=== PATIENT | female | born 1960 | race Two or more races ===

== ENCOUNTER 2018-11-05 21:40 | Emergency (ER) | payer SELFPAY ==
[~2018-11-05] VITALS: Ht 162.6 cm; Wt 63.5 kg
[~2018-11-05 21:40] MED LIST: HYDROCODON-ACE1 EA15 ORAL; IBUPROFEN600 MG ORAL; NKM
[2018-11-05] MEDS ORDERED: Naproxen 500mg tab ORAL ONE (22:00)
[2018-11-05] MEDS ORDERED: Albuterol/Ipratropium 3ml neb HHN ONE (22:00)
--- NOTE | 2018-11-05 22:04 | Emergency Room Report ---
History of Present Illness General Chief Complaint: Flu Like Symptoms Source: Patient Present Illness HPI Patient is a 58-year-old female presented after increased nonproductive cough. Patient had onset of symptoms approximately 1 weeks ago. Patient reports having a subjective fever. She reports having increased sore throat as well as hearing loss. She reports having some slight increased nasal congestion.She denies any prior medical history. Allergies: Coded Allergies: No Known Allergies (Unverified , 11/27/13) Patient History Past Medical History: see triage record Last Menstrual Period: RAYMOND Reviewed Nursing Documentation: PMH: Agreed; PSxH: Agreed Nursing Documentation-PMH Past Medical History: No Stated History Review of Systems All Other Systems: negative except mentioned in HPI Physical Exam Vital Signs Date Time Temp Pulse Resp B/P (MAP) Pulse Ox O2 Delivery O2 Flow Rate FiO2 11/05/18 21:50 99.5 104 14 114/72 99 Room Air General Appearance: well appearing, no apparent distress, alert, GCS 15 Head: normocephalic, atraumatic ENT: hearing grossly normal, normal voice Neck: full range of motion, supple Respiratory: no respiratory distress, speaking full sentences, wheezing Cardiovascular #1: normal inspection, regular rate, rhythm, no edema Gastrointestinal: normal inspection, non tender, soft Musculoskeletal: normal inspection, back normal, digits/nails normal, no calf tenderness Neurologic: normal inspection, alert, oriented x3, responsive, normal gait Psychiatric: normal inspection, judgement/insight normal, mood/affect normal Skin: normal inspection, no rash Medical Decision Making Diagnostic Impression: Primary Impression: Viral bronchitis ER Course Patient presented for cough and difficulty breathing.. Differential diagnosis included but was not limited to bronchitis, pneumonia, pulmonary embolism, pericarditis, asthma, foreign body. Patient was given breathing treatment. Patient appears to have some evidence of bronchitis at this time. She was noted to have a very dry nonproductive cough. Patient appears to have some viral respiratory illness.Patient was given oral steroids.Patient was noted to have influenza B positive study. Patient was given medications for symptomatic treatment. Patient is not within the window for Tamiflu treatment. Patient will be given prescription for cough medications. She was advised to continue oral hydration. Patient was to return if she began having worsening shortness of breath increased dizziness or other concerns.Patient is awake and alert and oriented and does not appear to be significantly ill at this time. Patient was advised to return if she felt worse. Last Vital Signs Date Time Temp Pulse Resp B/P (MAP) Pulse Ox O2 Delivery O2 Flow Rate FiO2 11/05/18 21:50 99.5 104 14 114/72 99 Room Air Status: improved Disposition: HOME, SELF-CARE Condition: Stable Scripts Naproxen* (NAPROSYN*) 250 Mg Tablet 250 MG ORAL TWICE A DAY, #14 TAB 0 Refills Prov: Roel Prescott MD 11/05/18 Guaifenesin/Codeine (Guaifenesin-Codeine Syrup) 5 Ml Liquid 5 ML ORAL Q4H PRN for For Cough, #118 ML Prov: Roel Prescott MD 11/05/18 Roel Prescott MD Nov 05, 2018 22:04
[2018-11-05 22:08] VITALS: BP 128/78
[2018-11-05] MEDS ORDERED: guaiFENesin w/Codeine 5ml Liq ud ORAL ONE (22:30)
--- NOTE | 2018-11-05 22:48 | Diagnostic Imaging Report ---
EXAM: XR Chest, 1 View CLINICAL HISTORY: SOB TECHNIQUE: Frontal view of the chest. COMPARISON: No relevant prior studies available. FINDINGS: Lungs: Unremarkable. No consolidation. Pleural space: Unremarkable. No pneumothorax. Heart: Unremarkable. No cardiomegaly. Mediastinum: Unremarkable. Bones/joints: Unremarkable. IMPRESSION: 1. No acute cardio pulmonary disease. 2. If there is persistent concern, recommend formal frontal and lateral chest radiographs.
[2018-11-05] MEDS ORDERED: NAPROXEN250 MG ORAL (22:49)
[2018-11-05] MEDS ORDERED: ROBITUSSIN AC5 ML ORAL (22:49)
[2018-11-05 22:58] VITALS: BP 122/68
== END 2018-11-05 23:01 | disposition home or self-care (01) ==
LOC: EMR 22:05
DX: J20.8 Acute bronchitis due to other specified organisms (principal); R09.81 Nasal congestion
CPT/HCPCS: 71045; 86710; 94640; 94664; 99284; J7512; J7620